=== PATIENT | male | born 1970 | race Caucasian/White ===

== ENCOUNTER 2017-01-22 12:17 | Outpatient (CLI) | payer MEDICARE, MEDICAID ==
--- NOTE | 2017-01-22 18:36 | ULT ---
BILATERAL RENAL ULTRASOUND 01/22/17 Ultrasonography of the kidneys was performed. Documentary images and worksheets were provided and re viewed. The right kidney measures 10.2 x 3.8 x 3.7 cm. No mass, hydronephrosis or obvious calcifications wer e seen. Cortex is adequate in thickness and echogenicity. The left kidney measures 9.6 x 4.3 x 4.1 cm. it appears normal as well with no mass or hydronephrosi s. The cortical echogenicity and thickness was normal. The urinary bladder was measured at 4.1 x 3.9 x 1.5 cm. Its wall seems rather thick uniformly. No in ternal shadowing was seen to suggest stones. IMPRESSION: 1. No significant renal findings. 2. Mild concentric thickening of the urinary bladder. POS: HOME
== END 2017-01-22 12:18 | disposition home or self-care (01) ==
LOC: BURULT 12:17
PROVIDERS: ATTEND Urology
DX: N21.0 Calculus in bladder (principal); N31.9 Neuromuscular dysfunction of bladder, unspecified
CPT/HCPCS: 76770

== ENCOUNTER 2017-02-16 15:13 | Outpatient (CLI) | payer MEDICARE, MEDICAID | END 2017-02-16 15:14 | disposition home or self-care (01) | LOC: BURLAB 15:13 | PROVIDERS: ATTEND Urology | DX: N39.0 Urinary tract infection, site not specified (principal) | CPT/HCPCS: 87086 ==

== ENCOUNTER 2022-02-09 13:45 | Emergency (ER) | payer OTHER, MEDICAID ==
[2022-02-09 15:32] LABS: Bilirubin Negative (Negative); Blood, Urine Negative (Negative); Clarity Clear (Clear); Glucose, Urine (Dipstick) Negative (Negative); Ketone, Urine Negative (Negative); Leukocyte Negative (Negative); Nitrite Negative (Negative); Protein, Urine (Dipstick) Negative (Neg-Trace); Specific Gravity, Urine 1.015 (1.005-1.030); Urobilinogen 0.2 mg/dL (Less than 2)
== END 2022-02-09 15:48 | disposition home or self-care (01) ==
LOC: BURERS 13:45
DX: R32 Unspecified urinary incontinence (principal); Z79.899 Other long term (current) drug therapy
CPT/HCPCS: 81003; 99283